=== PATIENT | male | born 1985 | race Caucasian/White ===

== ENCOUNTER 2017-10-24 15:39 | Emergency (ER) | payer MEDICARE ==
[~2017-10-24] VITALS: Ht 193 cm; Wt 90.7 kg
[~2017-10-24 15:39] MED LIST: HYDROCHLOROTH12.5 M1 PO; IBUPROFEN 800800 M1 PO; KLONOPIN0.5 MG PO; NORCO 5-325 TA1 EACH PO; ULTRAM 50MG TAB50 MG PO; ZOLOFT50 MG PO
[2017-10-24 15:47] VITALS: BP 132/87
[2017-10-24] MEDS ORDERED: EFFEXOR XR37.5 MG PO (15:59)
[2017-10-24] MEDS ORDERED: LISINOPRIL5 MG PO (15:59)
[2017-10-24] MEDS ORDERED: NEURONTIN 300300 M1 PO (15:59)
[2017-10-24] MEDS ORDERED: MOBIC15 MG PO (15:59)
== END 2017-10-24 16:09 | disposition home or self-care (01) ==
LOC: M.ERS 15:39
DX: Z76.0 Encounter for issue of repeat prescription (principal); G89.29 Other chronic pain; F41.9 Anxiety disorder, unspecified; I10 Essential (primary) hypertension; Z88.8 Allergy status to other drugs, medicaments and biological substances

== ENCOUNTER 2017-10-28 13:56 | Emergency (ER) | payer MEDICARE ==
[~2017-10-28] VITALS: Ht 188 cm; Wt 90.7 kg
[~2017-10-28 13:56] MED LIST changes: +EFFEXOR XR37.5 MG PO; +LISINOPRIL5 MG PO; +MOBIC15 MG PO; +NEURONTIN 300300 M1 PO
[2017-10-28 14:54] VITALS: BP 157/100
== END 2017-10-28 14:55 | disposition home or self-care (01) ==
LOC: M.ERS 13:56
DX: M54.9 Dorsalgia, unspecified (principal); Z76.0 Encounter for issue of repeat prescription; F41.9 Anxiety disorder, unspecified; Z87.891 Personal history of nicotine dependence; Z88.8 Allergy status to other drugs, medicaments and biological substances